=== PATIENT | female | born 1985 | race Caucasian/White ===

== ENCOUNTER → 2016-09-08 | Outpatient (REF) | payer OTHER ==
[~2016-09-08] MED LIST: FLEXERIL OR; TRAM50TA2 OR; ZANA4CAP OR
[2016-09-08 15:06] LABS: MEAN CORPUSCULAR HEMOGLOBIN 32.1 pg (27.0-33.0); MEAN CORPUSCULAR HGB CONC 33.9 g/dl (32.0-36.5); MEAN CORPUSCULAR VOLUME 94.8 fl (80.0-96.0); RED CELL DISTRIBUTION WIDTH 13.7 % (11.5-14.5)
[2016-09-08 15:58] LABS: ALBUMIN 3.8 GM/DL (3.2-5.2); ALBUMIN/GLOBULIN RATIO 1.09 (1.00-1.93); ALKALINE PHOSPHATASE 172 U/L (45-117); ALT/SGPT 918 U/L (12-78); ANION GAP 8 MEQ/L (8-16); AST/SGOT 371 U/L (15-37); BILIRUBIN,TOTAL 0.4 MG/DL (0.2-1.0); BLOOD UREA NITROGEN 15 MG/DL (7-18); CALCIUM LEVEL 9.2 MG/DL (8.5-10.1); CARBON DIOXIDE LEVEL 29 MEQ/L (21-32); CHLORIDE LEVEL 105 MEQ/L (98-107); CREATININE FOR GFR 0.54 MG/DL (0.55-1.02); GLOMERULAR FILTRATION RATE > 60.0 (>60); GLUCOSE, FASTING 120 MG/DL (70-105); POTASSIUM SERUM 4.8 MEQ/L (3.5-5.1); SODIUM LEVEL 142 MEQ/L (136-145); TOTAL PROTEIN 7.3 GM/DL (6.4-8.2)
== END ==
LOC: M LAB REF 14:53
PROVIDERS: ATTEND Surgery
DX: F11.10 Opioid abuse, uncomplicated (principal)

== ENCOUNTER 2016-11-09 23:32 | Emergency (ER) | payer OTHER ==
[~2016-11-09] VITALS: Ht 154.9 cm; Wt 77.1 kg
[2016-11-10] VITALS: BP 117/81
== END 2016-11-10 00:23 | disposition home or self-care (01) ==
LOC: EDBD 23:32 → M ED 23:48
DX: T40.2X1A Poisoning by other opioids, accidental (unintentional), initial encounter (principal); F11.129 Opioid abuse with intoxication, unspecified; F17.210 Nicotine dependence, cigarettes, uncomplicated; T40.1X1A Poisoning by heroin, accidental (unintentional), initial encounter; Y92.89 Other specified places as the place of occurrence of the external cause

== ENCOUNTER → 2016-11-16 | Outpatient (CLI) | payer OTHER | LOC: M OUTALCOH 07:41 | PROVIDERS: ATTEND Psychiatry & Neurology Psychiatry | DX: F11.20 Opioid dependence, uncomplicated (principal) ==

== ENCOUNTER 2016-12-02 13:00 | Outpatient (RCR) | payer OTHER | END 2016-12-09 | LOC: M OUTALCOH 13:00 | PROVIDERS: ATTEND Psychiatry & Neurology Psychiatry | DX: F11.20 Opioid dependence, uncomplicated (principal); F17.200 Nicotine dependence, unspecified, uncomplicated ==

== ENCOUNTER 2017-03-22 07:07 | Emergency (ER) | payer OTHER ==
[~2017-03-22] VITALS: Ht 154.9 cm; Wt 70.5 kg
[2017-03-22 07:42] VITALS: BP 155/89
[2017-03-22] MEDS ORDERED: ADACEL/BOOSTRIX VACCINE (DIPHTH/PERTUSS/ACELL/TETANUS)0.5ML SYR (90715) IM ONE (07:45)
--- NOTE | 2017-03-22 08:46 | REP ---
Clinical: Trauma. Technique: AP and frog lateral views of the right femur. Findings: Osseous structures, joint spaces, and surrounding soft tissues are normal. No acute fracture or dislocation. Impression: No fracture or dislocation. Signed by Min Phelps MD 03/22/2017 08:37 A
== END 2017-03-22 10:54 | disposition left against medical advice (07) ==
LOC: M ED 07:07
DX: T76.21XA Adult sexual abuse, suspected, initial encounter (principal); Y92.89 Other specified places as the place of occurrence of the external cause; F19.21 Other psychoactive substance dependence, in remission; Z91.013 Allergy to seafood; Z91.018 Allergy to other foods; S71.111A Laceration without foreign body, right thigh, initial encounter; X58.XXXA Exposure to other specified factors, initial encounter; Y93.89 Activity, other specified; Y99.8 Other external cause status

== ENCOUNTER → 2018-02-15 | Outpatient (REF) | payer OTHER | LOC: M LAB REF 13:39 | DX: K64.4 Residual hemorrhoidal skin tags (principal) ==

== ENCOUNTER → 2018-09-16 | Outpatient (CLI) | payer OTHER ==
--- NOTE | 2018-09-16 16:13 | REP ---
BILATERAL MAMMOGRAM WITH 3D TOMOSYNTHESIS WITH DIAGNOSTIC MAMMOGRAM RIGHT BREAST: There is reportedly a palpable lump medially and inferiorly in the right breast. The area is marked on the skin with a triangular marker. MLO and CC views are performed with 3D tomosynthesis and spot compression views of the inferomedial right breast are performed. There are no prior studies for comparison. There is mild to moderate scattered fibroglandular tissue bilaterally. No suspicious mass is seen. No clustered microcalcifications are seen. Small axillary lymph nodes are present. IMPRESSION: ACR 0 incomplete. No mammographic abnormality seen bilaterally. There is no mammographic abnormality at the site of the reported palpable lump inferomedially. Patient could not remain in the department for ultrasound of this palpable lump. Recommend the patient undergo ultrasound of the inferomedial right breast to evaluate the palpable abnormality. BIRADS 0: BI-RADS/ACR category 0 mammogram, Incomplete: Need additional imaging evaluation and/or prior mammograms for comparison. This mammogram was interpreted with the aid of an FDA-approved computer-aided detection system. The patient states she/he had a clinical breast exam in August 2018. The patient letter being requested is M0. Elan Galdamez lifetime risk of breast cancer 11.6%. Electronically Signed by Cornelio Jimenez MD 09/19/2018 12:04 P
== END ==
LOC: M RAD 13:33
PROVIDERS: ATTEND Nurse Practitioner Family
DX: N63.0 Unspecified lump in unspecified breast (principal)
CPT/HCPCS: 77066; G0279

== ENCOUNTER → 2018-09-19 | Outpatient (CLI) | payer OTHER ==
--- NOTE | 2018-09-19 18:54 | REP ---
RIGHT BREAST ULTRASOUND: 09/19/2018. Clinical history: The patient states lump 3-4 o'clock right breast but unable to reproduce that today. Scanning in the lower inner quadrant from 3-6 o'clock performed. Comparison: Diagnostic bilateral mammogram 09/16/2018. Right breast shows heterogeneous echogenic breast tissue without discrete mass, dilated duct, cyst or architectural distortion. No abnormal skin thickening. The mammogram showed no mammographic abnormalities on standard or tomographic or spot magnified images of the right breast. Impression: 1. There is ACR category 1 negative right breast ultrasound. No sonographic abnormalities in the area of the previously reported palpable finding, unable to be located by the patient today. No mammographic abnormality on the 09/16/2018 examination. Annual screening mammography beginning at age 40 or sooner if clinically warranted. This mammogram was interpreted with the aid of an FDA-approved computer-aided detection system. The patient states she had a clinical breast exam in 08/2018. The patient letter being requested is M2. Please see mammogram report this date for final assessment and recommendation. Electronically Signed by Krishan Hall MD 09/19/2018 08:09 P
== END ==
LOC: M RAD 14:31
PROVIDERS: ATTEND Nurse Practitioner Family
DX: N63.10 Unspecified lump in the right breast, unspecified quadrant (principal)

== ENCOUNTER 2018-10-09 22:34 | Emergency (ER) | payer OTHER ==
[~2018-10-09] VITALS: Ht 154.9 cm; Wt 81.8 kg
[2018-10-09] MEDS ORDERED: ALBUTEROL SULFATE 2.5 MG/0.5 ML INH NEB SOLN NEB ONE (23:45)
[2018-10-10] MEDS ORDERED: AZITHROMYCIN 250 MG TAB PO ONE
[2018-10-10 00:04] LABS: INFLUENZA A AMPLIFICATION NEGATIVE (NEGATIVE); INFLUENZA B AMPLIFICATION NEGATIVE (NEGATIVE)
[2018-10-10] MEDS ORDERED: VENTAER INH (00:31)
[2018-10-10] MEDS ORDERED: ZITHTAB PO (00:31)
[2018-10-10 00:37] VITALS: BP 128/74
--- NOTE | 2018-10-10 08:11 | REP ---
Chest x-ray: Two views. History: Cough. Comparison study: September 18, 2008. Findings: There is increased density overlying the left heart border on today's PA chest x-ray consistent with an infiltrate in the lingular segment of the left upper lobe. Lung vuong are otherwise clear. Pleural angles are sharp. Heart is not enlarged. Pulmonary vasculature is not increased. No bony abnormality is seen. Impression: Lingular segment left upper lobe infiltrate consistent with pneumonia. Electronically Signed by Benjamin Cotto MD 10/10/2018 08:02 A
== END 2018-10-10 00:38 | disposition home or self-care (01) ==
LOC: M ED 22:34
DX: J18.1 Lobar pneumonia, unspecified organism (principal); I10 Essential (primary) hypertension; K21.9 Gastro-esophageal reflux disease without esophagitis; F11.11 Opioid abuse, in remission; F17.210 Nicotine dependence, cigarettes, uncomplicated; Z91.048 Other nonmedicinal substance allergy status

== ENCOUNTER → 2019-08-08 | Outpatient (REF) | payer OTHER ==
[~2019-08-08] MED LIST changes: +VENTAER INH; +ZITHTAB PO
[2019-08-08 21:33] LABS: CHLAMYDIA DNA AMPLIFICATION NEGATIVE (NEGATIVE); GC DNA AMPLIFICATION NEGATIVE (NEGATIVE)
== END ==
LOC: M LAB REF 10:49
PROVIDERS: ATTEND Physician Assistant
DX: Z11.3 Encounter for screening for infections with a predominantly sexual mode of transmission (principal); Z12.4 Encounter for screening for malignant neoplasm of cervix
CPT/HCPCS: 87491; 87591; 87624; G0123

== ENCOUNTER → 2019-08-16 | Outpatient (CLI) | payer OTHER, MEDICAID ==
[2019-08-16 15:01] LABS: BASO % 0.4 % (0.0-1.0); EOS # 0.4 10^3/uL (0.0-0.5); EOS % 3.9 % (0.0-3.0); HEMATOCRIT 43.1 % (36.0-47.0); HEMOGLOBIN 13.6 g/dl (12.0-15.5); LYMPH # 4.1 10^3/uL (1.5-5.0); LYMPH % 37.1 % (24.0-44.0); MEAN CORPUSCULAR HEMOGLOBIN 30.2 pg (27.0-33.0); MEAN CORPUSCULAR HGB CONC 31.6 g/dl (32.0-36.5); MEAN CORPUSCULAR VOLUME 95.8 fl (80.0-96.0); MONO # 0.9 10^3/uL (0.0-0.8); MONO % 8.6 % (0.0-5.0); NEUTROPHILS # 5.4 10^3/uL (1.5-8.5); NEUTROPHILS % 49.5 % (36.0-66.0); PLATELET COUNT, AUTOMATED 267 10^3/uL (150-450)
[2019-08-16 15:04] LABS: APPEARANCE, URINE HAZY (CLEAR); BACTERIA, URINE AUTO 2+ (NEGATIVE); BILIRUBIN, URINE AUTO NEGATIVE (NEGATIVE); BLOOD, URINE BLOOD NEGATIVE (NEGATIVE); COLOR, URINE YELLOW (YELLOW); GLUCOSE, URINE (UA) AUTO NEGATIVE (NEGATIVE); KETONE, URINE AUTO NEGATIVE (NEGATIVE); LEUKOCYTE ESTERASE, URINE AUTO NEGATIVE (NEGATIVE); NITRITE, URINE AUTO NEGATIVE (NEGATIVE); PROTEIN, URINE AUTO NEGATIVE (NEGATIVE); RBC, URINE AUTO 5 /HPF (0-3); SPECIFIC GRAVITY URINE AUTO 1.016 (1.002-1.035); SQUAMOUS EPITHELIAL CELL UR AU 7 /HPF (0-6); UROBILINOGEN, URINE AUTO 0.2 mg/dL (0.0-2.0); WBC, URINE AUTO 7 /HPF (0-3)
[2019-08-16 15:27] LABS: HEMOGLOBIN A1c 5.9 %
[2019-08-16 15:28] LABS: ALBUMIN 3.5 GM/DL (3.2-5.2); ALT/SGPT 162 U/L (12-78); BILIRUBIN,TOTAL 0.4 MG/DL (0.2-1.0); BLOOD UREA NITROGEN 12 MG/DL (7-18); CALCIUM LEVEL 8.6 MG/DL (8.5-10.1); CARBON DIOXIDE LEVEL 26 MEQ/L (21-32); CHLORIDE LEVEL 108 MEQ/L (98-107); CHOLESTEROL LEVEL 208 MG/DL (<200); CHOLESTEROL RISK RATIO 3.525 (<5); CREATININE FOR GFR 0.57 MG/DL (0.55-1.30); FREE T4 0.85 NG/DL (0.76-1.46); GLOMERULAR FILTRATION RATE > 60.0 (>60); GLUCOSE, FASTING 88 MG/DL (70-100); HDL CHOLESTEROL 59 MG/DL (>40); LDL CHOLESTEROL 133 MG/DL (<100); NON-HDL-C 149 MG/DL; POTASSIUM SERUM 4.8 MEQ/L (3.5-5.1); SODIUM LEVEL 140 MEQ/L (136-145); TRIGLYCERIDES LEVEL 79 MG/DL (<150)
[2019-08-16 15:29] LABS: TOTAL 25(OH) VITAMIN D 7.3 NG/ML (30.0-100.0)
[2019-08-16 15:36] LABS: ERYTHROCYTE SEDIMENTATION RATE 9 mm/hr (0-20)
[2019-08-16 15:40] LABS: HEPATITIS B SURFACE ANTIGEN NEGATIVE (NEGATIVE)
[2019-08-16 16:08] LABS: HEPATITIS B CORE ANTIBODY IGM NEGATIVE (NEGATIVE)
[2019-08-16 16:10] LABS: HIV 1&2 SCREEN CENTAUR NEGATIVE (NEGATIVE)
[2019-08-16 16:11] LABS: HEPATITIS A ANTIBODY IGM NEGATIVE (NEGATIVE)
[2019-08-16 16:29] LABS: CHLAMYDIA DNA AMPLIFICATION NEGATIVE (NEGATIVE); GC DNA AMPLIFICATION NEGATIVE (NEGATIVE)
[2019-08-16 16:39] LABS: HEPATITIS C VIRUS ABY INDEX > 11.0 INDEX (<0.8)
== END ==
LOC: M LAB 13:44
PROVIDERS: ATTEND Family Medicine
DX: M25.50 Pain in unspecified joint (principal); Z11.3 Encounter for screening for infections with a predominantly sexual mode of transmission; Z13.228 Encounter for screening for other metabolic disorders

== ENCOUNTER 2020-05-02 12:33 | Emergency (ER) | payer OTHER, MEDICAID ==
[~2020-05-02] VITALS: Ht 154.9 cm; Wt 90.9 kg
[2020-05-02] MEDS ORDERED: DOK1CAP7 (12:56)
[2020-05-02] MEDS ORDERED: BUPR1FIL3 (12:56)
[2020-05-02] MEDS ORDERED: ATEN50TA2 (12:56)
[2020-05-02 13:52] VITALS: BP 112/67
== END 2020-05-02 13:54 | disposition home or self-care (01) ==
LOC: EDBD 12:33 → M ED 12:33
DX: J06.9 Acute upper respiratory infection, unspecified (principal); R11.10 Vomiting, unspecified; R19.7 Diarrhea, unspecified; I10 Essential (primary) hypertension; F11.10 Opioid abuse, uncomplicated; F17.200 Nicotine dependence, unspecified, uncomplicated; Z91.018 Allergy to other foods; Z79.899 Other long term (current) drug therapy

== ENCOUNTER → 2021-04-20 | Outpatient (REF) | payer MEDICAID ==
[~2021-04-20] MED LIST changes: +ATEN50TA2; +BUPR1FIL3; +DOK1CAP4
[2021-04-20 19:54] LABS: RSV AMPLIFICATION NEGATIVE (NEGATIVE)
== END ==
LOC: M LAB REF 18:40
PROVIDERS: ATTEND Physician Assistant
DX: R05.9 Cough, unspecified (principal)

== ENCOUNTER → 2021-06-01 | Outpatient (REF) | payer MEDICAID | LOC: M LAB REF 19:40 → EEVIPCON 19:40 | PROVIDERS: ATTEND Physician Assistant Medical | DX: L03.116 Cellulitis of left lower limb (principal) ==